=== PATIENT | female | born 2000 | race Caucasian/White ===

== ENCOUNTER 2022-03-29 20:14 | Emergency (ER) | payer OTHER, SELFPAY ==
[2022-03-29 20:49] VITALS: BP 150/96; PULSE 86; TEMP 37.2; O2SAT 99; BMI 29.1
--- NOTE | 2022-03-29 21:17 | CRLHL7_ITS ---
For Patients: As a result of the Cures Act, medical imaging exams and procedure reports are released immediately into your electronic medical record. You may view this report before your referring provider. If you have questions, please contact your health care provider. Indication: Injury and pain. Technique: Left knee 3 views Comparison: None Findings: Bones: Alignment is normal. No fractures or bone lesions. Joint spaces: No joint effusion. Joint spaces are well maintained. No degenerative changes. Soft tissues: Unremarkable. Impression: No sign of acute injury. Dictated by Surendra Craft MD @ 03/29/2022 10:17:06 PM (Electronically Signed)
--- NOTE | 2022-03-29 22:12 | ED.LOWEXIN ---
HPI - Extremity Injury (Lower) General Chief Complaint: Extremity Pain/Injury, Lower Stated Complaint: Left knee injury Time Seen by Provider: 03/29/22 21:09 History of Present Illness HPI Narrative: This 21-year-old female comes in with an injury to her left knee that occurred just prior to arrival. She was playing lacrosse and planted her knee in felt some kind of crunch with pain. She has ambulated a bit on this leg but does come in with crutches. She does not have any sign of deformity and does not have any prior injury to this left knee. She has normal range of motion but states that her knee feels a bit tight with flexion. She also has some mild increased discomfort when a fully extending her left knee. Related Data Home Medications Medication Instructions Recorded Confirmed dextroamphetamine-amphetamine 30 03/29/22 mg tablet Allergies Allergy/AdvReac Type Severity Reaction Status Date / Time cat dander Allergy Unknown Verified 03/29/22 20:52 pollen extracts Allergy Unknown Verified 03/29/22 20:52 Review of Systems Status of ROS: Reports: 10 or more systems reviewed and unremarkable except as noted in History and below Narrative: Constitutional: No fevers, no weight gain or loss. Eyes: No discharge. No vision changes. HENT: No congestion, no sore throat, no ear pain. Cardiovascular: No chest pain, no palpitations. Respiratory: No shortness of breath, no wheezes, no cough. Gastrointestinal: No abdominal pain, no vomiting, no diarrhea. Genitourinary: No dysuria, no hematuria. Musculoskeletal: Normal range of motion. Left knee injury as described above. Skin: No rashes, no pruritis. Neurological: No dizziness, weakness, sensory change, speech change. Endo/Heme/Allergies: No bruising or bleeding. No polydipsia. Pysch: no suicidality, no anxiety, no insomnia. All other systems reviewed and are negative. Exam Narrative: Exam Narrative: Constitutional: Well-developed, well-nourished, no acute distress. HEENT: Normocephalic, atraumatic. Neck: Normal range of motion. Nontender. Supple. Heart: Intact distal pulses. Lungs: No chest discomfort. No wheezes, rhonchi, or rales. Abdomen: Nontender. Back: Normal range of motion. Extremities: Normal range of motion. Left knee is showing no sign of effusion or deformity. There is no skin injury involved. Hosea's test is negative. There is no ligament instability when performing medial and lateral stress. Kvng's test is also negative. She does have some tenderness when displacing her patella laterally. Skin: Intact. No rash. Warm. No erythema or pallor. Neurologic: No altered sensation. No weakness. Alert and oriented. Psychiatric: No suicidality. No anxiety or depression. No insomnia. Nursing notes and vitals signs are reviewed. Const: Vital Signs, click to edit/add: Vital Signs - 24 hr 03/29/22 20:49 Temperature 98.9 F Pulse Rate [Pulse Oximeter] 86 Blood Pressure [Ri ght Upper Arm] 150/96 H Pulse Oximetry 99 Oxygen Delivery Me thod Room Air Course Vital Signs Vital signs: Initial Vital Signs Temperature 98.9 F 03/29/22 20:49 Temperature Source Temporal Artery Scan 03/29/22 20:49 Pulse Rate 86 03/29/22 20:49 Blood Pressure 150/96 H 03/29/22 20:49 Blood Pressure Mean 114 03/29/22 20:49 Blood Pressure Position Sitting 03/29/22 20:49 Pulse Oximetry 99 03/29/22 20:49 Oxygen Delivery Method 03/29/22 20:49 Vital Signs Temperature 98.9 F 03/29/22 20:49 Pulse Rate 86 03/29/22 20:49 Blood Pressure 150/96 H 03/29/22 20:49 Pulse Oximetry 99 03/29/22 20:49 Oxygen Delivery Method 03/29/22 20:49 Temperature 98.9 F 03/29/22 20:49 Pulse Rate 86 03/29/22 20:49 Blood Pressure 150/96 H 03/29/22 20:49 Pulse Oximetry 99 03/29/22 20:49 Oxygen Delivery Method 03/29/22 20:49 MDM - Extremity Injury (Lower) MDM Narrative Medical decision making narrative: This patient comes in with an injury to her left knee. X-ray imaging by my review shows no sign of fracture or dislocation. On exam she is not showing any sign of effusion and has no obvious ligament instability. She states that she noticed some pain in the medial aspect of her knee when laying on her left side for the x-ray imaging. Her pain was more localized over the area where the medial collateral ligament is involved. She is not showing any sign of ligament instability of the medial collateral ligament but she may have strained this ligament. There is also some suspicion for a patella subluxation. The patient is not in need of any knee immobilization. She does have crutches and is encouraged to increase activity as tolerated. Discharge Plan Discharge Clinical Impression: Knee MCL sprain Patient Disposition: Home, Self-Care Condition: Unchanged Additional Instructions: Increase activity as tolerated. Use crutches as needed. Follow-up with orthopedic clinic if not improving or return to emergency department if needed. Orthopedic clinic can be scheduled by calling [phone]. Prescriptions: No Action dextroamphetamine-amphetamine 30 mg tablet Follow Up/Referrals: Provider,Not a Local [Primary Care Provider] - Stand Alone Forms: [employer] Info Instructions
== END 2022-03-29 22:46 | disposition home or self-care (01) ==
PROVIDERS: Emergency Provider Emergency Medicine Emergency Medical Services
DX: S83.412A Sprain of medial collateral ligament of left knee, initial encounter (principal); X58.XXXA Exposure to other specified factors, initial encounter; Y93.65 Activity, lacrosse and field hockey
CPT/HCPCS: 73562; 99283; 99284

== ENCOUNTER 2022-05-24 15:27 | Outpatient (CLI) | payer OTHER, SELFPAY ==
--- NOTE | 2022-05-24 15:30 | MR_ITS ---
[facility] [address] [facility] [address] Phone:?[phone] Fax:?[phone] Referring Physician Information: Chip Jones M.D. [address] [facility] [address] Phone:?[phone] Fax:?[phone] Patient:Nereida Chery.O.B:?2000 Sex:?Female Phone:? [facility] MRN:?[id number] Exam Date:?05/24/2022 ? EXAM: MRI of the LEFT KNEE, without contrast CLINICAL: Left knee pain. Evaluate for medial meniscal tear and MCL sprain. COMPARISONS: X-rays 03/29/2022. TECHNICAL: MR sequences of the left knee: sagittals: PD, PDFS coronals: PD, T2FS axials: PD, PDFS SEDATION: None. CONTRAST: None. FINDINGS: Ligaments: ACL: There is irregularity and increased signal/ill-defined partial tearing involving the ACL, without complete disruption. PCL: Intact and unremarkable. MCL: Intact and unremarkable. LCL: There is mild soft tissue edema about and minimal irregularity/partial tearing of the LCL consistent with mild sprain injury. Posterolateral corner: Popliteus, biceps femoris, iliotibial band, and the popliteofibular ligament appear intact. Posteromedial corner: Semimembranosus, pes anserine tendons and posterior oblique ligament appear intact. Extensor mechanism: Patellar tendon: Intact, without tendinopathy. Quadriceps tendon: Intact, without tendinopathy. Retinacula: Medial and lateral retinacula are intact. Fat pads: Unremarkable infrapatellar Hoffa's, quadriceps and prefemoral fat pads. Patellofemoral joint: Patella: No significant chondromalacia. Trochlea: No significant chondromalacia. Medial compartment: Medial meniscus: There is vertical meniscocapsular tearing involving the far peripheral posterior horn on sagittal series 6 images 8-11 extending into the junction with the posterior body segment on coronal series 8 image 20-21. Medial meniscus otherwise appears intact. No meniscal displacement. Medial cartilage: No significant chondromalacia. Lateral compartment: Lateral meniscus: Complex tearing involves the posterior horn extending into the posterior root fibers on sagittal series 6 images 20-24. Lateral meniscus otherwise appears intact. No meniscal displacement. Lateral cartilage: No significant chondromalacia. Knee joint: Effusion: Moderate left knee effusion. Intra-articular bodies:?No convincing bodies identified. Popliteal cyst: Very small. Bones: There is increased bone marrow edema involving the peripheral anterior lateral femoral condyle and posterior lateral tibial plateau consistent with osseous contusions. No osseous fracture site is identified. IMPRESSION: 1. Sprain injury with ill-defined partial tearing of the ACL. Associated joint effusion and osseous contusions. 2. Mild sprain injury of the LCL. 3. Tearing of the medial and lateral menisci as above. JCZ Electronically signed on 05/25/2022 9:42:00 AM by Kvng Bradshaw D.O.
== END 2022-05-24 15:28 | disposition home or self-care (01) ==
LOC: MRI 15:28
PROVIDERS: Visit Provider Orthopaedic Surgery Sports Medicine
DX: M25.562 Pain in left knee (principal); S83.512A Sprain of anterior cruciate ligament of left knee, initial encounter; S83.282A Other tear of lateral meniscus, current injury, left knee, initial encounter; S83.242A Other tear of medial meniscus, current injury, left knee, initial encounter
CPT/HCPCS: 73721

== ENCOUNTER 2022-12-12 14:25 | Outpatient (CLI) | payer OTHER, SELFPAY | END 2022-12-12 14:26 | disposition home or self-care (01) | LOC: NFLDREF 12-13 10:32 | PROVIDERS: Visit Provider Registered Nurse | DX: R30.0 Dysuria (principal); N39.0 Urinary tract infection, site not specified; N30.00 Acute cystitis without hematuria | CPT/HCPCS: 87086; 87186 ==

== ENCOUNTER 2023-12-02 14:15 | Outpatient (CLI) | payer OTHER, SELFPAY ==
--- OUTSIDE RECORDS SUMMARY | 2023-12-04 17:04 | XMS_ITS | Clinical Summary ---
Author Organization [facility] [place], [place] [address] Care Team Providers Care E Learning Coordinator Name Role Phone Pcp, No Primary Care Provider Unavailabl e Allergies No known active allergies Medications Medication Sig Dispensed Refills Start Date End Date Status Amphetamine-Dextroamp hetamine (AdderalL) 15 mg tablet Take 15 mg by mouth 2 times daily at 7 AM and Noon. Active tretinoin (RETIN-A TOP) Apply topically to affected area(s). Active Active Problems No known active problems Encounters Date Type Department Care Team Description 10/14/2023 4:05 PM CDT Office Visit [facility] [address] [place] [address] Yue Ritter DO Contraception (nexplanon removal. [facility] July 2021 [facility] ) 10/14/2023 Travel from Last 3 Months Immunizations Name Administration Dates Next Due AMB INFLUENZA, IIV4 (AGE=>6M OS) MDV (Flu Clinic Only) 11/03/2018 COVID-19 vaccine (Radha-J& J) PF, MDV 05/19/2020 DTaP 11/30/2004, 3,05/26/2001,2001,01/24/2001 HIB PRP-T (ActHIB,Hiberix) 11/29/2001,03/28/2001 ,01/24/2001 HPV 9 (Gardasil 9) 08/06/2016,09/17/2015, 016 Hepatitis A (Peds) 10/22/2011,04/29/2011 Hepatitis B (Peds) 11/29/2001,03/28/2001,12/18/2 001 Inactivated Polio Vaccine 11/29/2005,,03/28/2001,2000 MMR 11/30/2004,03/05/2002 Meningococcal, Unspecified 10/18/2017,02/09/2013 Pneumococcal conj 7-Valent ( Prevnar 7) 05/26/2001,03/28/2001,01/24/2001 Tdap 10/22/2011 Typhoid (injectable) 06/11/2020 Varicella Vaccine 11/30/2006,11/29/2001 Social History Tobacco Use Types Packs/Day Years Used Date Smoking Tobacco: Never Smokeless Tobacco: Never Tobacco Cessation:Counseling Given: Yes Alcohol Use Standard Drinks/Week Comments Never 0 (1 standard drink = 0.6 oz pur e alcohol) Social Connections Answer Date Recorded Frequency of Communication with Friends and Fami ly Not on file 10/14/2023 Financial Resource Strain Answer Date R ecorded Difficulty of Paying Living Expenses Not on file 02/01/2021 Difficulty of Paying Living Expenses Not on file 02/01/2021 Sex and Gender Information Value Date Recorded Sex Assigned at Not on file Gender Identity Not on file Sexual Orientation Not on file Obstetrics History Last Filed Vital Signs Vital Sign Reading Time Taken Comments Blood Pressure 148/89 10/14/2023 4:13 PM CDT Pulse 96 10/14/2023 4:13 PM CDT Temperature - - Respiratory Rate - - Oxygen Saturation 98% 06/11/2020 5:22 PM CDT Inhaled Oxygen Concentration - - Weight 80.9 kg (178 lb 6.4 oz) 06/11/2020 5:22 P M CDT Height - - Body Mass Index - - Plan of Treatment Health Maintenance Due Date Last Done Comments Depression screening for age 12+ 2012 HIV for age 15-65 11/26/2015 BMI (ht and wt on same day) for age 18+ 2018 Hepatitis C screening for ag e 18-79 2018 Chlamydia for age 16-24 03/03/2021 03/03/2020 Tetanus booster 10/21/2021 10/22/2011 Pap test for age 21-65 2021 COVID-19 vaccine series ( season) 2023 05/19/2020 Influenza for age 9-49 10/09/2023 11/03/2018 Pneumococcal series for age 6-64 Aged Out 05/26/2001, 03/28/2001, 01/24/2001 No longer eligible based on patient's age to complete this topic Tdap Completed 10/22/2011 HPV series for age 9-26 Completed 08/07/19 17, 09/17/2015, 06/06/2015 Procedures Procedure Name Priority Date/Time Associated Diagnosis Comments GC CHLAMYDIA TRACH PROBE Routine 03/03/2020 1:22 PM SAWMILL EQUIPMENT OPERATOR from Last 3 Months or Most Recently Relevant to Health Maintenance Results * GC CHLAMYDIA TRACH PROBE (03/03/2020 1:22 PM SAWMILL EQUIPMENT OPERATOR) CHLAMYDIA PROBE Negative 11:15 AM SAWMILL EQUIPMENT OPERATOR [facility] N GONORRHOEAE PROBE Negative 03/05/2020 11:15 AM SAWMILL EQUIPMENT OPERATOR [facility] Other VAGINAL SWAB / Unknown Client Collect / Unknown 03/03/2020 1:22 PM SAWMILL EQUIPMENT OPERATOR 03/04/2020 5:40 PM SAWMILL EQUIPMENT OPERATOR Doctor Unknown [facility] [address] [place] [address], from Last 3 Months or Most Recently Relevant to Health Maintenance Care Teams E Learning Coordinator Relationship Specialty Start Date End Date Pcp, No . PCP - General 11/30/19
--- OUTSIDE RECORDS SUMMARY | 2023-12-04 17:04 | XMS_ITS | Clinical Summary ---
Demographics Address [address] [place] [address] [place] [address] Home Phone Mobile Phone Email Address Preferred Language Portuguese Marital Status Single Alevism Affiliation Unknown Race White Ethnic Group Unknown Author Organization [place] Address [address] [place] [address] Care Team Providers Care Real Estate Sales Associate Name Role Phone Unavailable Primary Care Provider Unavailabl e Allergies No known active allergies Medications No known medications Social History Tobacco Use Types Packs/Day Years Used Date Smoking Tobacco: Never Assessed PHQ-2 Answer Date Recorded PHQ-2 Score 0 06/22/2022 Adolescent Education Answer Date Record ed Getting School Help Needed Not on file 10/30 Comments Unknown Sex and Gender Information Value Date Recorded Sex Assigned at Not on file Legal Sex Female 10:28 AM CDT Gender Identity Not on file Sexual Orientation Not on file Plan of Treatment Health Maintenance Due Date Last Done Comments ADVANCE CARE PLANNING 2000 ANNUAL REVIEW OF HM ORDERS 2000 CHLAMYDIA SCREENING 2000 YEARLY PREVENTIVE VISIT 2000 HIV SCREENING 11/26/2015 HEPATITIS C SCREENING 2018 DTAP/TDAP/TD IMMUNIZATION (7 - Td or Tdap) 10/21/2021 10/22/2011, 11/30/2004, 05/28/2002, Additional history exists PAP 2021 PHQ-2 (once per calendar year) 2023 06/22/2022 COVID-19 Vaccine ( season) 2023 11/12/2021, 05/19/2020 INFLUENZA VACCINE (#1) 2023 , 12/04/2020, 11/03/2018 RSV VACCINE (1 - 1-dose 75+ series) 11/26/2075 Pneumococcal Vaccine: Pediatrics (0 to 5 Years) and At-Risk Patients (6 to 64 Years) Aged Out 05/26/2001, 03/28/2001, 01/24/2001 No longer eligible based on patient's age to complete this topic HEPATITIS B IMMUNIZATION Completed 002, 03/28/2001, 01/24/2001 HPV IMMUNIZATION Completed 08/06/2016, 11/2015, 06/06/2015 MENINGITIS IMMUNIZATION Completed 10/18/2017, 02/09 RSV MONOCLONAL ANTIBODY Aged Out No l onger eligible based on patient's age to complete this topic Insurance * Guarantor: Ari Grullon Account Type Relation to Patient Date of Phone Billing Address Personal/Family Self [address] [employer] COMMERCIAL Member Subscriber Plan / Payer (Ef fective 2022-Present) Name:Ari Grullon Relation to Subscriber:Child Name:RONNY GRULLON Date of :1958 (Home) Address: [facility] [address] [place] [address] Payer ID:[id number] (NAIC) Type:HMO Address: [address] [address] [place] [address]
--- OUTSIDE RECORDS SUMMARY | 2023-12-04 17:04 | XMS_ITS | Referral Summary ---
Demographics Address [address] [place] [address] [place] [address] Home Phone Mobile Phone Email Address Preferred Language South Sudanese Marital Status Single Samaritan Affiliation Unknown Race White Ethnic Group Unknown Author Organization [facility] Address [address] [place] [address] Care Team Providers Care Tool Designer Apprentice Name Role Phone Unavailable Primary Care Provider [...] Orientation Not on file Plan of Treatment Not on file Insurance * Guarantor: Ari Grullon Account Type Relation to Patient Date of Phone Billing Address Personal/Family Self [address] [place] [address] [place] [address] [employer] COMMERCIAL Member Subscriber Plan / Payer (Ef fective 2022-Present) Name:Ari Grullon Relation to Subscriber:Child Name:RONNY GRULLON Date of :1958 (Home) Address: [address] [place] [address] [place] [address] Payer ID:[id number] (NAIC) Type:O Address: [facility] [address] [place] [address]
--- OUTSIDE RECORDS SUMMARY | 2023-12-04 17:04 | XMS_ITS | Clinical Summary ---
Author Organization [facility], [facility], and [facility] Address [address] [address] [facility] [address] [place] [address] Care Team Providers Care Lead Manufacturing Engineer Name Role Phone Tiago Dolan MD Primary Care Provider [phone] Marlys Bender Unavailable Belen Sarah Unavailable Leanne Arreaga MD Unavailable [phone] Allergies Active Allergy Reactions Criticality Noted Date Comments Cat 08/24/2022 Medications Medication Sig Dispensed Refills Start Date End Date Status Amphetamine-Dextroa mphetamine 20 MG Tablet 04/21/2020 Active buPROPion XL 150 MG Tablet Extended Release 24 Hour 04/21/2020 Active aspirin 325 MG TabletIndications:D eep Vein Thrombosis Prophylaxis Take 1 tablet by mouth Daily for 21 days. 21 tablet 08/24/2022 Active diazePAM 5 MG TabletIndications:M uscle Spasm Take 1 tablet by mouth Every 6 Hours As Needed for muscle spasms for up to 15 doses. Max Daily Amount: 20 mg 15 tablet 08/24/2022 Active gabapentin 300 MG CapsuleIndications: Postoperative Pain Take 1 capsule by mouth 3 Times a Day for 3 days. 9 capsule 08/24/2022 Active ondansetron 4 MG Tablet DisintegratingIndic ations:Nausea and Vomiting Take 1 tablet by mouth Every 8 Hours As Needed for nausea/vomiting. 12 tablet 08/24/2022 Active Dapsone 7.5 % GelIndications:Acne Vulgaris Apply topically Daily. 60 g 5 09/23/2022 Active tretinoin 0.05 % Cream creamIndications:Ac ne Vulgaris Apply topically Nightly. 45 g 11 09/23/2022 Active oxyCODONE 5 MG TabletIndications:P ain Take 1 tablet (5 mg) by mouth Every 6 Hours As Needed for prn breakthrough pain- transient increase in pain intensity, which occurs against a background of persistent pain that had been controlled by standing and/or as needed therapies. Max Daily Amount: 20 mg 4 tablet 04/26/2023 Active Active Problems Problem Noted Date Diagnosed Date Left anterior cruciate ligament tear 07/06/2022 Overview (07/06/2022): Added automatically from request for surgery [id number] Acute medial meniscus tear, left, initial encoun ter 07/06/2022 Overview (07/06/2022): Added automatically from request for surgery [id number] Acute lateral meniscus tear of left knee 023 Overview (07/06/2022): Added automatically from request for surgery [id number] Atopic dermatitis, mild 01/28/2020 Comedonal acne 01/28/2020 Epistaxis 01/28/2020 Generalized anxiety disorder 01/28/2020 Milia 01/28/2020 Never a smoker 01/28/2020 Seborrhea 01/28/2020 Social History Tobacco Use Types Packs/Day Years Used Date Smoking Tobacco: Never Smokeless Tobacco: Never Alcohol Use Standard Drinks/Week Comments Never 0 (1 standard drink = 0.6 oz pur e alcohol) Sex and Gender Information Value Date Recorded Sex Assigned at Female 01/11/2020 3:58 PM EST Gender Identity Female 05/12/2020 10:41 AM EDT Sexual Orientation Not on file Last Filed Vital Signs Vital Sign Reading Time Taken Comments Blood Pressure 138/87 08/25/2022 3:15 PM EDT Pulse 83 08/25/2022 3:15 PM EDT Temperature 36.4 ??C (97.5 ??F) 08/25/2022 3:00 PM ED T Respiratory Rate 14 04/26/2023 9:00 AM EDT Oxygen Saturation 99% 08/25/2022 3:15 PM EDT Inhaled Oxygen Concentration - - Weight 86.2 kg (190 lb) 04/26/2023 9:00 AM EDT Height 167.6 cm (5' 6) 04/26/2023 9:00 AM EDT Body Mass Index 30.67 04/26/2023 9:00 AM EDT Plan of Treatment Health Maintenance Due Date Last Done Comments Chlamydia/GC Screening (ANNUAL) 2010 HIV SCREENING 2013 Hepatitis C screening 2018 IMM: DTap/ Tdap/ Td (2 - Td or Tdap) 10/21/2021 10/22/2011 Pap Smear 2021 Dental Oral Exam 03/20/2022 09/17/2021, , 08/16/2019 Dental Prophylaxis 03/21/2022 09/17/2021, 1 04/01/2020, 07/24/2020, Additional history exists COVID-19 Vaccine ( season) 2023 01/14/2021 IMM: Influenza (#1) 2023 11/03/2018, 10/18/2017, 10/21/2016, Additional history exists IMM: HPV Completed 08/06/2016, 09/07, 06/06/2015 IMM: Meningococcal B Completed 01/28/2020, 09/20/19 20 Pneumococcal Vaccine: Pediatrics (0 to 5 Years) and At-Risk Patients (6 to 64 Years) Aged Out No longer eligible based on patient's age to complete this topic Medical Devices Implanted Type Area Circuit Walker Device Identifier Shelf Expiration Date Model / Serial / Lot Acl Repair Tightrope, With Internalbrace - Sn/A - [id number] Implanted:Qty: 1 on 08/25/2022 by Leanne Arreaga MD at [facility] Santo Left: Knee ARTHREX [id number] 04/07/2027 AR-1588R- IB / N/A / [id number] Fiberstitch Implant, 24d Curve With Two Polyester Implants And 2-0 Fiberwire Suture - Sn/A - [id number] Implanted:Qty: 5 on 08/25/2022 by Leanne Arreaga MD at [facility] [place] Left: Knee ARTHREX [id number] 09/06/2026 AR-4570-2 4 / N/A / [id number] System Implant Secondary Fixation With [place]anto Biocomposite 19.1mm X 4.75mm Swivelock - Sn/A - [id number] Implanted:Qty: 1 on 08/25/2022 by Leanne Arreaga MD at [facility] [place] Left: Knee ARTHREX 05/07/2026 AR-1593-B C / N/A / [id number] Implant System Meniscal Root Repair (Ar-4550) - Sn/A - [id number] Implanted:Qty: 1 on 08/25/2022 by Leanne Arreaga MD at [facility] Fixator Left: Knee ARTHREX [id number] 07/07/2026 AR-4550 / N/A / [id number] Bear Implant Implanted:Qty: 1 on 08/25/2022 by Leanne Arreaga MD at [facility] Implant Left: Knee UNKNOWN SEWER PIPE SORTER [id number] 10/04/2024 1000 / N/A / [id number] Description:Implant descript ion and cost provided by vendor [employer] Ortho BEAR Implant Type I Bovine collagen inter-positional implant Procedures Procedure Name Priority Date/Time Associated Diagnosis Comments PROPHYLAXIS - ADULT Routine 09/17/2021 1 2:00 PM EDT PERIODIC ORAL EVALUATION - ESTABLISHED PATIENT Routine 09/17/2021 12:00 PM EDT from Last 3 Months or Most Recently Relevant to Health Maintenance Advance Directives Healthcare Agents on File Name Relationship Healthcare Agent Relationshi p Communication Maco Chapman Father Health Care Agent Nohemi Maco Alternate Healthcare Agent Care Teams Lead Manufacturing Engineer Relationship Specialty Start Date End Date Tiago Dolan MD [address] [place] [address] [address] [place] [address] PCP - General Pediatric - General 11/27/19 Marlys Bender [address] [place] [address] Dental Hygienist Dentistry - General 01/30/21 Belen Sarah [address] [place] [address] Dental Hygienist Dentistry - General 09/18/21 Leanne Arreaga MD [address] [place] [address] [address] [place] [address] Surgery - Orthopedic 07/23/22
== END 2023-12-02 14:16 | disposition home or self-care (01) ==
LOC: NFLDREF 12-04 17:02
PROVIDERS: Visit Provider Physician Assistant
DX: R30.0 Dysuria (principal); N39.0 Urinary tract infection, site not specified
CPT/HCPCS: 87086; 87186

== ENCOUNTER 2024-08-05 10:36 | Emergency (ER) | payer OTHER, SELFPAY ==
--- OUTSIDE RECORDS SUMMARY | 2024-08-05 10:38 | XMS_ITS | Clinical Summary ---
Author Organization [facility], [facility], and [facility] Address [address] [place] [address] Care Team Providers Care President Mortgage Company Name Role Phone Belen Sarah Unavailable Leanne Arreaga MD Unavailable [phone] Allergies Active Allergy Reactions Criticality Noted Date Comments Cat 08/24/2022 Medications Amphetamine-Dex troamphetamine 20 MG Tablet 1 Active buPROPion XL 150 MG Tablet Extended Release 24 Hour 1 Active aspirin 325 MG TabletIndicatio ns:Deep Vein Thrombosis Prophylaxis Take 1 tablet by mouth Daily for 21 days. 21 tablet 3 Active diazePAM 5 MG TabletIndicatio ns:Muscle Spasm Take 1 tablet by mouth Every 6 Hours As Needed for muscle spasms for up to 15 doses. Max Daily Amount: 20 mg 15 tablet 3 Active gabapentin 300 MG CapsuleIndicati ons:Postoperati ve Pain Take 1 capsule by mouth 3 Times a Day for 3 days. 9 capsule 3 Active ondansetron 4 MG Tablet DisintegratingI ndications:Naus ea and Vomiting Take 1 tablet by mouth Every 8 Hours As Needed for nausea/vomiting. 12 tablet 3 Active Dapsone 7.5 % GelIndications: Acne Vulgaris Apply topically Daily. 60 g 5 3 Active tretinoin 0.05 % Cream creamIndication s:Acne Vulgaris Apply topically Nightly. 45 g 11 3 Active oxyCODONE 5 MG TabletIndicatio ns:Pain Take 1 tablet (5 mg) by mouth Every 6 Hours As Needed for prn breakthrough pain- transient increase in pain intensity, which occurs against a background of persistent pain that had been controlled by standing and/or as needed therapies. Max Daily Amount: 20 mg 4 tablet 4 Active Active Problems Problem Noted Date Diagnosed Date Left anterior cruciate ligament tear 07/06/2022 Overview (07/06/2022): Added automatically from request for surgery [id number] Acute medial meniscus tear, left, initial encoun ter 07/06/2022 Overview (07/06/2022): Added automatically from request for surgery [id number] Acute lateral meniscus tear of left knee 023 Overview (07/06/2022): Added automatically from request for surgery [id number] Atopic dermatitis, mild 01/28/2020 Comedonal acne 01/28/2020 Epistaxis 01/28/2020 Generalized anxiety disorder 01/28/2020 Milia 01/28/2020 Never a smoker 01/28/2020 Seborrhea 01/28/2020 Social History Tobacco Use Types Packs/Day Years Used Date Smoking Tobacco: Never Smokeless Tobacco: Never Alcohol Use Standard Drinks/Week Comments Never 0 (1 standard drink = 0.6 oz pur e alcohol) Comments Unknown Sex and Gender Information Value Date Recorded Sex Assigned at Female 01/11/2020 3:58 PM EST Legal Sex Female 11:11 AM EST Gender Identity Female 05/12/2020 10:41 AM EDT Sexual Orientation Not on file Last Filed Vital Signs Vital Sign Reading Time Taken Comments Blood Pressure 138/87 08/25/2022 3:15 PM EDT Pulse 83 08/25/2022 3:15 PM EDT Temperature 36.4 C (97.5 F) 08/25/2022 3:00 PM EDT Respiratory Rate 14 04/26/2023 9:00 AM EDT Oxygen Saturation 99% 08/25/2022 3:15 PM EDT Inhaled Oxygen Concentration - - Weight 86.2 kg (190 lb) 04/26/2023 9:00 AM EDT Height 167.6 cm (5' 6) 04/26/2023 9:00 AM EDT Body Mass Index 30.67 04/26/2023 9:00 AM EDT Plan of Treatment Health Maintenance Due Date Last Done Comments HIV SCREENING 2013 Hepatitis C screening 2018 Chlamydia/GC Screening (ANNUAL) 03/03/2021 03/03/2020 IMM: DTap/ Tdap/ Td (7 - Td or Tdap) 10/21/2021 10/22/2011, 11/30/2004, 05/28/2002, Additional history exists Pap Smear 2021 COVID-19 Vaccine ( season) 2023 01/14/2021, 05/19/2020 Dental Oral Exam 07/26/2024 01/26/2024, 12/2021, 01/29/2021, Additional history exists Dental Prophylaxis 07/27/2024 01/26/2024, 0 09/17/2021, 01/29/2021, Additional history exists IMM: Influenza (Season Ended) 2024 11/03/2018, 10/18/2017, 10/21/2016, Additional history exists IMM: RSV (1 - 1-dose 75+ series) 11/26/2075 Pneumococcal Vaccine: Pediatrics (0 to 5 Years) and At-Risk Patients (6 to 49 Years) Aged Out 05/26/2001, 03/28/2001, 01/24/2001 No longer eligible based on patient's age to complete this topic IMM: HPV Completed 08/06/2016, 09/07, 06/06/2015 IMM: Meningococcal B Completed 01/28/2020, 09/20/19 20 Medical Devices Implanted Type Area Lawn Specialist Device Identifier Shelf Expiration Date Model / Serial / Lot Acl Repair Tightrope, With Internalbrace - Sn/A - [id number] Implanted:Qty: 1 on 08/25/2022 by Leanne Arreaga MD at [facility] [place] Left: Knee ARTHREX [id number] 04/07/2027 AR-1588R- IB / N/A / [id number] Fiberstitch Implant, 24d Curve With Two Polyester Implants And 2-0 Fiberwire Suture - Sn/A - [id number] Implanted:Qty: 5 on 08/25/2022 by Leanne Arreaga MD at [facility] [place] Left: Knee ARTHREX [id number] 09/06/2026 AR-4570-2 4 / N/A / [id number] System Implant Secondary Fixation With [place] Biocomposite 19.1mm X 4.75mm Swivelock - Sn/A - [id number] Implanted:Qty: 1 on 08/25/2022 by Leanne Arreaga MD at [facility] [place] Left: Knee ARTHREX 05/07/2026 AR-1593-B C / N/A / [id number] Implant System Meniscal Root Repair (Ar-4550) - Sn/A - [id number] Implanted:Qty: 1 on 08/25/2022 by Leanne Arreaga MD at [facility] Fixator Left: Knee ARTHREX [id number] 07/07/2026 AR-4550 / N/A / [id number] Bear Implant Implanted:Qty: 1 on 08/25/2022 by Leanne Arreaga MD at [facility] Implant Left: Knee UNKNOWN ACQUISITIONS ASSISTANT [id number] 10/04/2024 1000 / N/A / [id number] Description:Implant descript ion and cost provided by vendor [employer] Orth[employer] BEAR Implant Type I Bovine collagen inter-positional implant Procedures Procedure Name Priority Date/Time Associated Diagnosis Comments PROPHYLAXIS - ADULT Routine 01/26/2024 1 2:00 PM EST Encounter for routine dental examination PERIODIC ORAL EVALUATION - ESTABLISHED PATIENT Routine 01/26/2024 12:00 PM EST Encounter for routine dental examination from Last 3 Months or Most Recently Relevant to Health Maintenance Insurance * Guarantor: Ari Grullon Account Type Relation to Patient Date of Phone Billing Address Personal/Family Self [address] [place] [address] [facility] Member Subscriber Plan / Payer (Ef fective 2019-Present) Name:Ari Grullon Relation to Subscriber:Child Name:RONNY GRULLON Date of :1958 (Home) Address: [address] [place] [address] Payer ID:[id number] (NAIC) Type:PPO Address: [address] [place] [address] [address] [place] [address] [employer] * Guarantor: Ari Grullon Account Type Relation to Patient Date of Phone Billing Address Dental Self [address] [place] [address] [address] [place] [address] [address] [place] [address] [address] [place] [address] * Guarantor: Ari Grullon Account Type Relation to Patient Date of Phone Billing Address Personal/Family Self [address] [place] [address] Advance Directives Healthcare Agents on File Name Relationship Healthcare Agent Relationshi p Communication Mcao Chapman Father Health Care Agent Nohemi Grullon Alternate Healthcare Agent Care Teams President Mortgage Company Relationship Specialty Start Date End Date Belen Sarah [address] [place] [address] Dental Hygienist Dentistry - General 09/18/21 Leanne Arreaga MD [address] [place] [address] [place] [address] Surgery - Orthopedic 07/23/22
--- OUTSIDE RECORDS SUMMARY | 2024-08-05 10:39 | XMS_ITS | Data Portability ---
Author Organization [place] - .[facility], [address] [place] Address [address] [place] [address] Assessment No assessment recorded. Plan of Treatment Reminders Order Date Submit Date Provider Last Modified By Organization Details Last Modified Time Details Appointments None recorded. Lab rapid SARS CoV 2 Ag, QL IA, respiratory specimen 2021 022 [email or web address] [facility], [address] [place], [address], 2 17:12:34 rapid SARS CoV 2 Ag, QL IA, respiratory specimen 2021 022 [email or web address] [facility], [address], [place], [address], 12:17:55 Referral None recorded. Procedures None recorded. Surgeries None recorded. Imaging None recorded. Medication Orders None recorded. Patient TargetsNo targets recorded. Patient Instructions Encounter Date Encounter Id Patient Instructions Last Modified By Organization Details Last Modified Time 03/08/2021 [id number] A healthy lifest yle: care instructions [email or web address] Not available 03/08/2021 12:17:55 Thank you for visiting [employer]. There are two ways to view your lab results: : 1. The [employer] kierra is available to all patients 18 and older in the [employer] Store and Google Play. First-time kierra users will need to create an account; please note you ll need to select a login and password for the kierra versus just using your patient portal login credentials. Your lab results will be posted to the [employer] kierra as soon as they re available. 2. Via email , as soon as lab results are available. If you don t receive an email within the estimated time frame, give our Aftercare team a call at [phone]. Test Name: SARS-CoV-2 rapid ag (COVID-19); Result: PENDING You were tested today for COVID-19 using a rapid [id number] test. Your results will be sent to you shortly via email. The next steps in your care depend on the results from this test AND the presence or absence of symptoms, AND whether you've had a high-risk exposure to Covid-19. NOTE: an EXPOSURE is defined as spending more than 10 minutes (within a 24 period) within an enclosed space with an individual who tested positive for Covid-19 If you receive a NEGATIVE Result for Covid-19 (and had NO KNOWN EXPOSURE): If you are ASYMPTOMATIC and NO KNOWN EXPOSURE: You are cleared to go back to work or school since you have no symptoms suggestive of COVID-19, have not had a high risk exposure to a person known to have COVID-19, and your Rapid Covid Test result is negative. If you have SYMPTOMS with NO KNOWN EXPOSURE: Your medical provider may have sent a second test to an outside lab to confirm that today s test was truly negative. The results of this second test (PCR technique) will be published to your [facility] patient portal ([email or web address]) as soon as they are available (3-5 days on average). For now, we ask that you go home under strict QUARANTINE, monitor for any worsening symptoms and return for re-evaluation if your symptoms become severe. If you receive a NEGATIVE Result for Covid-19 AND had a (+) HIGH-RISK EXPOSURE: FULLY VACCINATED: If you are fully vaccinated and boosted (with the booster at least 2 weeks before the first date of exposure) or you are not yet eligible for a booster, NO QUARANTINE IS REQUIRED. You should wear a well-fitting mask while aroundothers for 10 days after the last date of exposure. NOT FULLY VACCINATED (including vaccinated and eligible for a booster but not yet boosted): You should QUARANTINE for 5 DAYS, then wear a well-fitting mask while around others for an additional 5 days. It is recommended that you TEST at DAY 5 if possible (either PCR or Rapid Antigen) If you DEVELOP SYMPTOMS: QUARANTINE and SEEK TESTING. In this situation, quarantine would end when the test is negative. If testing is not done, isolate according to the guidance above (Vaccinated vs NOT-Vaccinated). If you receive a POSITIVE Result for Covid-19: ISOLATE for 5 DAYS from the onset of symptom. (If you are asymptomatic, you should Isolate for 5 days from the day of the positive test result.) AFTER 5 days: if your respiratory symptoms (ie. cough, runny nose, etc) are improving AND you are fever-free for 24 hours (without using fever reducing medications like acetaminophen or ibuprofen), isolation ends and you should wear a well-fitting mask while around others for an additional 5 days . If you are UNABLE TO WEAR a well-fitting mask for 5 days: you should continue ISOLATION for 5 more days (total = 10 days isolation) If you are IMMUNOCOMPROMISED (moderately to severely): you should continue ISOLATION for 5 more days (total = 10 days isolation) HEALTHCARE WORKERS: Vaccinated Healthcare Workers who test POSITIVE for COVID-19 may return to work 5 days after onset of symptoms (Asymptomatic HC workers with a positive test may use 5 days from date of test) provided their symptoms are improving and they re fever free for >24 hours. Consult your employer s EHS team. Unvaccinated Healthcare Workers who test POSITIVE for COVID-19 may return to work 7 days after onset of symptoms (Asymptomatic HC workers with a positive test may use 7 days from date of test) provided their symptoms are improving and they re fever free for >24 hours. Consult your employer s EHS team: Your health care institution may vary on quarantine requirements; they may also require testing prior to your returning to work. Be Safe MONITOR YOUR SYMPTOMS : If at any point your symptoms become worse or severe such as fever that will not improve with medicine, shortness of breath, chest pain or discomfort, abdominal pain, inability to tolerate eating and drinking, please return to [facility] or go to the closest Emergency Room. QUARANTINE INFO : If you were asked to quarantine yourself, please stay in your own part of the house away from everyone else, using your own bedroom and bathroom, if possible. If you need to be in a common area ensure that both you and anyone else around you is wearing a mask.You will be considered free of contagious COVID-19 10 days after your symptoms began if your symptoms have significantly improved and you have not had a fever for at least 24 hours (without using fever reducing medications like acetaminophen or ibuprofen). REPEAT TESTING: It is generally NOT required (or even recommended) to get repeat testing for COVID-19 until at least 90 days after receiving a positive test result. (Consult your employer/school for their specific requirements). If you are age 18 to 65 and have recently tested positive for SARS-CoV-19, you can help in the fight against COVID-19! Antibodies from your blood can be given to patients with COVID-19 to help save lives. Sign up using the link below. If you are eligible, a member of our team will contact you to schedule an appointment. Donors are compensated at each donation! Please visit [employer] and complete the screening form to see if you are eligible for donation Please continue to follow all personal safety practices when outside the home, including (a) wearing a nose and mouth covering at all times when around people outside of your household, (b) social distancing, (c) hand hygiene, and (d) avoidance of contact with people with known or possible COVID-19. [email or web address] Not available 03/08/2021 10:48:42 03/09/2021 [id number] A healthy lifest yle: care instructions [email or web address] Not available 03/09/2021 17:12:34 Thank you for visiting [employer]. There are two ways to view your lab results: : 1. The [employer] kierra is available to all patients 18 and older in the Kierra Store and Google Play. First-time kierra users will need to create an account; please note you ll need to select a login and password for the kierra versus just using your patient portal login credentials. Your lab results will be posted to the [employer] kierra as soon as they re available. 2. Via email , as soon as lab results are available. If you don t receive an email within the estimated time frame, give our Aftercare team a call at [phone]. Test Name: SARS-CoV-2 rapid ag (COVID-19); Result: NEGATIVE Your test today for COVID-19 infection was NEGATIVE. The next steps in your care depend on your whether you are having symptoms or had an exposure to Covid-19: NOTE: an EXPOSURE is defined as spending more than 10 minutes (within a 24 period) within an enclosed space with an individual who tested positive for Covid-19 If NO EXPOSURE to COVID-19: If you are ASYMPTOMATIC and NO KNOWN EXPOSURE: You are cleared to go back to work or school since you have no symptoms suggestive of COVID-19, have not had a high risk exposure to a person known to have COVID-19, and your Rapid Covid Test result is negative. If you have SYMPTOMS with NO KNOWN EXPOSURE to COVID-19: Your medical provider may have sent a second test to an outside lab to confirm that today s test was truly negative. The results of this second test (PCR technique) will be published to your [facility] patient portal ([email or web address]) as soon as they are available (3-5 days on average). For now, we ask that you go home under strict QUARANTINE, monitor for any worsening symptoms and return for re-evaluation if your symptoms become severe. If HIGH-RISK EXPOSURE: FULLY VACCINATED: If you are fully vaccinated and boosted (with the booster at least 2 weeks before the first date of exposure) or you are not yet eligible for a booster, NO QUARANTINE IS REQUIRED. You should wear a well-fitting mask while aroundothers for 10 days after the last date of exposure. NOT FULLY VACCINATED (including vaccinated and eligible for a booster but not yet boosted): You should QUARANTINE for 5 DAYS, then wear a well-fitting mask while around others for an additional 5 days. It is recommended that you TEST at DAY 5 if possible (either PCR or Rapid Antigen) If you DEVELOP SYMPTOMS: QUARANTINE and SEEK TESTING. In this situation, quarantine would end when the test is negative. If testing is not done, isolate according to the guidance above (Vaccinated vs NOT-Vaccinated). Be Safe MONITOR YOUR SYMPTOMS : If at any point your symptoms become worse or severe such as fever that will not improve with medicine, shortness of breath, chest pain or discomfort, abdominal pain, inability to tolerate eating and drinking, please return to [facility] or go to the closest Emergency Room. QUARANTINE INFO : If you were asked to quarantine yourself, please stay in your own part of the house away from everyone else, using your own bedroom and bathroom, if possible. If you need to be in a common area ensure that both you and anyone else around you is wearing a mask.You will be considered free of contagious COVID-19 10 days after your symptoms began if your symptoms have significantly improved and you have not had a fever for at least 24 hours (without using fever reducing medications like acetaminophen or ibuprofen). Please continue to follow all personal safety practices when outside the home, including (a) wearing a nose and mouth covering at all times when around people outside of your household, (b) social distancing, (c) hand hygiene, and (d) avoidance of contact with people with known or possible COVID-19. [email or web address] Not available 03/09/2021 12:00:13 Reason for Referral None Reported. Results Created Date Observation Date Name Description Value Unit Range Abnormal Flag Note LastModifiedBy Organization Detail LastModifiedTime 03/08/19 22 03/08/2021 rapid SARS CoV 2 Ag, QL IA, respi rator y speci men Rapid COVID-19 Antigen (Internal Control Positive) Negati ve Not Available dn_[facility] [address] [place], [address], 03/08/2021 10:46:50 03/09/19 22 03/09/2021 rapid SARS CoV 2 Ag, QL IA, respi rator y speci men Rapid COVID-19 Antigen (Internal Control Positive) Negati ve Not Available [facility] [address] [place], [address], 03/09/2021 11:25:59 Result Notes None recorded. Problems Name Problem SNOMED Code Status Onset Date Resolution Date Notes Provider Name and Address Organization Details Recorded Time Attention deficit hyperactivity disorder 289382247 Active 2021 [facility] - [facility] 11:22:35 Anxiety 49981682 Active 2021 [facility] - [facility] 11:22:41 Problem Notes None recorded. Medical Equipment None Reported. Allergies No known drug allergies Medications Name Sig Start Date Stop Date Status Note LastModified by Organization Details LastModified Time Adderall 20 mg tablet Take 1 tablet every day by oral route. active Not Available Not Available No t Available clindamycin 1 % topical gel APPLY A THIN LAYER TO THE AFFECTED AREA(S) BY TOPICAL ROUTE 2 TIMES PER DAY active Not Available Not Available No t Available Wellbutrin 100 mg tablet Take 1 tablet twice a day by oral route. active Not Available Not Available No t Available Epidrin active Not Available Not Avail able Not Available Adderall 03/09 completed Not Available Not Available Not Available Vitals Date Recorded Heart rate Body temperature Respiratory rate Oxygen saturation Oxygen saturation in Arterial blood by Pulse oximetry Systolic blood pressure Diastolic blood pressure Provider Name and Address Organization Details Last Updated DateTime 2 100 /min 98.6 [degF] 16 /min 99 % 99 % 122 mm[Hg] 84 mm[Hg] Cheryle JANE - .[facility] 2 10:47:12 Date Recorded Heart rate Body temperature Respiratory rate Systolic blood pressure Diastolic blood pressure Provider Name and Address Organization Details Last Updated DateTime 2 100 /min 97.8 [degF] 16 /min 138 mm[Hg] 83 mm[Hg] Kaylene [place] - .[facility] 2 11:26:10 Social History Question Answer Notes LastModified by Organizat ion Details LastModified Time Tobacco Smoking Status Never Smoker [facility] Brunner - .[facility] 03/08/2021 10:46:39 RISK LEVEL - Segmentation Level 0 - Unknown/Ins ufficient Recent Data [email or web address] Information not available 03/30/2022 Sex: Unknown Functional Status None recorded. Mental Status None recorded. Family History Relationship Description Onset Age of this Age Resolved Age Notes LastModified by Organization Details LastModified Time Mother Hypertensive disorder [email or web address] Not available 2021 10:46:28 Medical History No medical history recorded. Gynecological HistoryNo gynecological history recorded. Obstetrics History GPAL:G 0 P 0 0 0 0 Past Encounters Encounter ID Performer Location Encounter Start Date Encounter Closed Date Diagnosis/Indication Diagnosis SNOMED-CT Code Diagnosis ICD10 Code Diagnosis Note [id number] [facility]ST[facility] [address] [place] [address] 03/08/2021 10:31:31 03/08/2021 10:49:06 Exposure to SARS-CoV-2 296893889 Z20.822 [id number] Merle [facility] [address] [place] [address] 03/09/2021 11:11:40 03/09/2021 11:28:05 Exposure to SARS-CoV-2 052778872 Z20.822 Health Concerns Section Related Observation LastModified by Organization Detai ls LastModified Time None Recorded Concern Status LastModified by Organization Details LastModified Time None Recorded Advance Directives Directive None Recorded Payers Insurance Date Sequence Insurance Name Policy Number Policy Batista Covered Member ID Batista Member ID Guarantor Name 03/10/2021 1 [facility] Naresh Dewey [id number] Ari Dewey 03/08/2021 1 *SELF PAY* Em andres Dewey Notes Date Note Type Note Provider Name and Address Organization Details Recorded Time 03/08/2021 text/html COVID-19 VISIT - cmdReported bypatient.Patient presents forCOVID-19 VISIT Pertinent findings:No symptoms; No fever; NO body aches; NO sore throat; NO nasal symptoms; No cough; No CP; No leg swelling; No neurologic deficits; No SOB COVID vaccination status:(+) COVID Vaccination J&J and HAS been > 2 weeks since the FINAL scheduled dose;Received BOOSTER? Yes(Moderna) 20 y/o female pt requesting COVID-19 rapid testing for travel. Pt denies any sxs or exposure. CHRISTIAN BIRMINGHAM [address] [place] [address],[address] [place] [address], [address] [place] [address] .[facility] 03/08/2021 12:17:59 03/09/2021 text/html COVID-19 VISIT - cmdReported bypatient.Patient presents forCOVID-19 VISIT; 20 yo F Pt presents for a Rapid Covid test today. Pt is asymptomatic and is requesting for travels tomorrow. Pertinent findings:No symptoms; No fever; NO body aches; NO sore throat; NO nasal symptoms; No cough; No CP; No leg swelling; No neurologic deficits; No SOB COVID vaccination status:(+) COVID Vaccination J&J and HAS been > 2 weeks since the FINAL scheduled dose;Received BOOSTER? Yes Employer / School information(+) in SCHOOL (name, address, phone?): [employer] [place] - [facility] 03/09/2021 12:48:59 OBGyn Episode No OBEpisode recorded.
--- OUTSIDE RECORDS SUMMARY | 2024-08-05 10:39 | XMS_ITS | Clinical Summary ---
Demographics Address [address] [place] [address] Home Phone Mobile Phone Email Address Preferred Language [place] Marital Status Single Jainism Affiliation Unknown Race White Ethnic Group Unknown Author Organization [facility] Address [address] [place] [address] Care Team Providers Care Check Weigher Name Role Phone Unavailable Primary Care Provider [...] 2000 CHLAMYDIA SCREENING 2000 YEARLY PREVENTIVE VISIT 11/26/2003 HIV SCREENING 11/26/2015 MENINGITIS B VACCINE (1 of 2 - Standard) 2016 HEPATITIS C SCREENING 2018 DTAP/TDAP/TD VACCINE (7 - Td or Tdap) 10/21/2021 10/22/2011, 11/30/2004, 05/28/2002, Additional history exists PAP 2021 COVID-19 VACCINE ( season) 2023 11/12/2021, 05/19/2020 PHQ-2 (once per calendar year) 2024 06/22/2022 INFLUENZA VACCINE (Season Ended) 2024 11/12/2021, 12/04/2020, 11/03/2018 ZOSTER VACCINE (1 of 2) 2050 PNEUMOCOCCAL VACCINE: PEDIATRICS (0 to 5 YEARS) AND AT-RISK PATIENTS (6 to 49 YEARS) Aged Out 05/26/2001, 03/28/2001, 01/24/2001 No longer eligible based on patient's age to complete this topic HEPATITIS B VACCINE Completed 11/29/2001, 03/28/2001, 01/24/2001 HPV VACCINE Completed 08/06/2016, 09/07, 06/06/2015 MENINGITIS VACCINE Completed 10/18/2017, 02/09/2013 Insurance * Guarantor: Ari Grullon Account Type Relation to Patient Date of Phone Billing Address Personal/Family Self [address] COMMERCIAL Member Subscriber Plan / Payer (Ef fective 2022-Present) Name:Ari Grullon Relation to Subscriber:Child Name:RONNY GRULLON Date of :1958 (Home) Address: [address] [place] [address] [address] [place] [address] Payer ID:[id number] (NAIC) Type:HMO Address: [facility] [address] [place] [address]
--- OUTSIDE RECORDS SUMMARY | 2024-08-05 10:39 | XMS_ITS | Clinical Summary ---
Author Organization [facility] Address [address] [place] [address] Care Team Providers Care Electrical Lineman Name Role Phone Pcp, No Primary Care Provider Unavailabl e Allergies No known active allergies Medications Amphetamine-Dex troamphetamine (AdderalL) 15 mg tablet Take 15 mg by mouth 2 times daily at 7 AM and Noon. Active tretinoin (RETIN-A TOP) Apply topically to affected area(s). Active Active Problems No known active problems Immunizations Immunization Administration Dates Next Due AMB INFLUENZA, IIV4 (AGE=>6M OS) MDV (Flu Clinic Only) 11/03/2018 COVID-19 vaccine (Radha-J& J) PF, EDGAR 05/19/2020 DTaP 11/30/2004, 3,05/26/2001,2001,01/24/2001 HIB PRP-T (ActHIB,Hiberix) 11/29/2001,03/28/2001 ,01/24/2001 HPV 9 (Gardasil 9) 08/06/2016,09/17/2015, 016 Hepatitis A (Peds) 10/22/2011,04/29/2011 Hepatitis B (Peds) 11/29/2001,03/28/2001, 001 Inactivated Polio Vaccine 11/29/2005,,03/28/2001,2000 MMR 11/30/2004,03/05/2002 [...] Paying Living Expenses Not on file 02/01/2021 Comments No Sex and Gender Information Value Date Recorded Sex Assigned at Not on file Legal Sex Female 4:49 PM CDT Gender Identity Not on file Sexual [...] vaccine series ( season) 2023 05/19/2020 Influenza Vaccine (Season Ended) 2024 11/03/2018 Pneumococcal series for age 6-49 Aged Out 05/26/2001, 03/28/2001, 01/24/2001 No longer eligible based on patient's age to complete this topic Hepatitis B series for 19+ Completed 11/29, 03/28/2001, 01/24/2001 Tdap Completed 10/22/2011 HPV series for age 9-26 Completed 08/07/19 17, 09/17/2015, 06/06/2015 Procedures Procedure Name Priority Date/Time Associated Diagnosis Comments GC CHLAMYDIA TRACH PROBE Routine 03/03/2020 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 Last 3 Months or Most Recently Relevant to Health Maintenance Results * GC CHLAMYDIA TRACH PROBE (03/03/2020 1:22 PM FISH HOUSE WORKER) CHLAMYDIA PROBE Negative 11:15 AM FISH 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 [place] [address], [place] from Last 3 Months or Most Recently Relevant to Health Maintenance Insurance [facility] Member Subscriber Plan / Payer (Ef fective 2023-Present) Name:Ari Grullon Relation to Subscriber:Child Name:RONNY GRULLON Date of :1958 Address: [address] [place] [address] Payer ID:[id number] (NAIC) Type:Not on file Address: [address] [address] [place] [address] Care Teams Electrical Lineman Relationship Specialty Start Date End Date Pcp, No . PCP - General 11/30/19
[2024-08-05 10:41] VITALS: BP 133/83; PULSE 74; RESP 18; TEMP 36.9; O2SAT 99; BMI 30.5
--- NOTE | 2024-08-05 11:12 | ED_ITS ---
HPI - General Adult General Date Seen: 08/05/24 Chief complaint: Unspecified Complaint, Adult Stated complaint: Tampon stuck 18 hours Time Seen by Provider: 08/05/24 11:09 History of Present Illness HPI narrative: 23 yo F who is generally healthy without any long-term medical conditions presenting to the ER today with concern that she may have a retained tampon. She is having her normal menstrual cycle. She is fairly sure she put a tampon in last night. She does not recall taking out but did use a pad overnight. This morning she is not really having here expected amount of vaginal bleeding and she is concerned there may be a tampon stuck in her vagina. She is not having any discharge. No vaginal pain or itching. No pelvic pain. No fever. She came to the ER to get checked to see if there was a retained tampon. She also knows that she has an important work trip with a plane flight this evening so she wants make sure that she is as healthy as possible before she leaves on the plane. Related Data Home Medications ?Medication ?Instructions ?Recorded ?Confirmed dextroamphetamine-amphetamine 30 03/29/22 12/02/23 mg tablet dextroamphetamine-amphetamine 20 PO 05/07/22 12/02/23 mg tablet tretinoin 0.025 % topical cream 1 applic topical QHS 0 02/22/24 08/05/24 Allergies Allergy/AdvReac Type Severity Reaction Status Date / Time cat dander Allergy Unknown Verified 08/05/24 10:46 pollen extracts Allergy Unknown Verified 08/05/24 10:46 PFSH PFSH Surgical History History of surgery of head ?Z98.890 - Other specified postprocedural states (ICD-10) Family History Maternal Grandmother Stroke Paternal Grandmother Stroke Mother High blood pressure Family/Other Heart disease Social History Smoking Status: Never smoker Non-prescribed substance use: marijuana (any form) Exam Narrative: Exam Narrative: Constitutional: Appears well-developed and well-nourished. Active. Non-toxic appearing. HENT: Head: Atraumatic. No signs of injury. Nose: No nasal discharge. Mouth/Throat: Mucous membranes are moist. Eyes: Conjunctivae normal and EOM are normal. Pupils are equal, round, and reactive to light. Right eye exhibits no discharge. Left eye exhibits no discharge. No icterus. Neck: Normal range of motion. Neck supple. No adenopathy. No stridor. Cardiovascular: Normal cap refill. Pulmonary/Chest: Effort normal. No stridor. No respiratory distress. Abdominal: Soft. Bowel sounds are normal. No distension. No mass. There is no tenderness. There is no rebound and no guarding. Pelvic: Performed with female client experience consultant. Normal external genitalia. Normal vaginal mucosa. Cervix closed. No bleeding. No cervicitis. No vaginal foreign body. Scant amount of dark red vaginal bleeding without clots. This was cleaned up with using a scolpette and there was no visualized foreign body in the anterior fornix, posterior fornix or laterally in the vagina. Musculoskeletal: Normal range of motion. No edema. No tenderness. No deformity. Neurological: Alert. Normal strength. No cranial nerve deficit or sensory deficit. Coordination normal. GCS eye subscore is 4. GCS verbal subscore is 5. GCS motor subscore is 6. Skin: Skin is warm. No rash noted. Const: Vital Signs, click to edit/add: Vital Signs - 24 hr 08/05/24 10:41 Temperature 98.4 F Pulse Rate [Right Pulse Oximeter] 74 Respiratory Rate 18 Blood Pressure [Ri ght Upper Arm] 133/83 Pulse Oximetry 99 Oxygen Delivery Me thod Room Air Course Vital Signs Vital signs: Initial Vital Signs Temperature 98.4 F 08/05/24 10:41 Temperature Source Temporal Artery Scan 08/05/24 10:41 Pulse Rate 74 08/05/24 10:41 Pulse Rhythm Regular 08/05/24 10:41 Pulse Strength 3+ Normal 08/05/24 10:41 Respiratory Rate 18 08/05/24 10:41 Blood Pressure 133/83 08/05/24 10:41 Blood Pressure Mean 99 08/05/24 10:41 Blood Pressure Position Sitting 08/05/24 10:41 Pulse Oximetry 99 08/05/24 10:41 Oxygen Delivery Method Room Air 08/05/24 10:41 Vital Signs Temperature 98.4 F 08/05/24 10:41 Pulse Rate 74 08/05/24 10:41 Respiratory Rate 18 08/05/24 10:41 Blood Pressure 133/83 08/05/24 10:41 Pulse Oximetry 99 08/05/24 10:41 Oxygen Delivery Method Room Air 08/05/24 10:41 Temperature 98.4 F 08/05/24 10:41 Pulse Rate 74 08/05/24 10:41 Respiratory Rate 18 08/05/24 10:41 Blood Pressure 133/83 08/05/24 10:41 Pulse Oximetry 99 08/05/24 10:41 Oxygen Delivery Method Room Air 08/05/24 10:41 Medical Decision Making MDM Narrative Medical decision making narrative: This is a very pleasant generally healthy 23-year-old female presenting to the ER today with concern that she may have a retained tampon. She know she put 1 yesterday but does not recall if she took it out last night. She is not having her expected amount of vaginal bleeding this morning. On our exam we do not see any sign of retained tampon or other foreign body. I do not see any signs of vaginal lacerations or infections. There is a small amount of bleeding this morning which would be expected since she is on her menstrual cycle. No other abnormality. At this point it appears that she does not have retained tampon. I think she is safe to discharge. Caution the patient that there is at a remote possibility that there could be a retained foreign body there were does not identify an exam today. She will monitor for any signs of itching, discharge, pain, or other problems and if they develop she will return for re-evaluation. At this point I do not think she needs any antibiotics or other prophylaxis. Questions answered and patient is comfortable with the plan. Discharge Plan Discharge Clinical Impression: Suspected condition not found Patient Disposition: Home, Self-Care Condition: Stable Instructions: Vaginal Foreign Body (ED) Additional Instructions: At this time we do not see any signs that you have a retained tampon or other foreign body in your vagina. This is very reassuring. You may still have a little bit of light bleeding from ear. In you can treat with pads and tampons as needed. Over the next few days watch for any signs of abnormal discharge, vaginal odor, pelvic pain or cramping, or any other unusual symptoms. If you have any concerns, please come back to the ER or see your regular doctor for recheck. Prescriptions: No Action dextroamphetamine-amphetamine 20 mg tablet PO tretinoin 0.025 % cream 1 applic topical QHS dextroamphetamine-amphetamine 30 mg tablet Follow Up/Referrals: Provider,Not a Local [Primary Care Provider, Family Practice] Stand Alone Forms: ticketstreet Info Instructions
== END 2024-08-05 11:35 | disposition home or self-care (01) ==
LOC: ED 11:35
PROVIDERS: Emergency Provider Emergency Medicine
DX: Z71.1 Person with feared health complaint in whom no diagnosis is made (principal)
CPT/HCPCS: 99281; 99283